=== PATIENT | male | born 1975 | race Caucasian/White ===

== ENCOUNTER → 2022-03-19 | Outpatient (CLI) | payer OTHER ==
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
== END | disposition home or self-care (01) ==
LOC: RADCTMAIN 11:02
PROVIDERS: ATTEND Psychiatry & Neurology Neurology
DX: S06.9X9A Unspecified intracranial injury with loss of consciousness of unspecified duration, initial encounter (principal); R93.0 Abnormal findings on diagnostic imaging of skull and head, not elsewhere classified; X58.XXXA Exposure to other specified factors, initial encounter
CPT/HCPCS: 70450

== ENCOUNTER → 2025-01-17 | Outpatient (CLI) | payer OTHER ==
[2025-01-17 10:54] VITALS: BP 170/104; PULSE 62; RESP 16; TEMP 97.5
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
== END ==
LOC: PNWHC3 10:00
PROVIDERS: ATTEND Specialist
DX: M19.90 Unspecified osteoarthritis, unspecified site (principal); Z87.891 Personal history of nicotine dependence
CPT/HCPCS: 99211